=== PATIENT | male | born 1950 | race Caucasian/White ===

== ENCOUNTER 2019-01-23 05:03 | Observation (INO) ==
[2019-01-23 05:46] LABS: Bilirubin,Urine Negative (Negative); Blood,Urine Negative (Negative); Clarity,Urine Clear (Clear); Color,Urine Yellow (Yellow); Glucose,Urine (UA) Normal (Normal); Ketones,Urine Negative (Negative); Leukocyte Esterase,Urine Negative (Negative); Nitrite,Urine Negative (Negative); Protein,Urine Negative (Neg-Trace); Specific Gravity,Urine 1.025 (1.010-1.025); Urobilinogen,Urine Normal (Normal)
[2019-01-23] MEDS ORDERED: Isovue-370 500 ML BOTTLE IVP ONE (05:47)
[2019-01-23] MEDS ORDERED: 0.9 % Sodium Chloride 1,000 ML IVC ONE (05:49)
[2019-01-23] MEDS ORDERED: Ondansetron 4 MG/2 ML VIAL IVP ONE (05:49)
[2019-01-23] MEDS ORDERED: *HR* Morphine 2 MG/ML SYRINGE IVP ONE (05:49)
--- NOTE | 2019-01-23 05:53 | Emergency Department Note ---
Disposition Clinical Impression: Abdominal pain Qualifiers: Abdominal location: right lower quadrant Qualified Code(s): R10.31 - Right lower quadrant pain Disposition: Home, Self-Care Condition: Fair Referrals: NONE,PCP [Primary Care Provider] - Forms: ED Satisfaction Letter, Work/School Release Time of Disposition: 06:52 Abdominal Pain HPI - General Chief Complaint: ED Abdominal Pain Stated Complaint: "Pain right side of abd" Time Seen by Provider: 01/23/19 05:41 Source: patient, family Mode of arrival: private vehicle Limitations: no limitations Nursing Notes Reviewed: Yes Vital Signs Reviewed: Yes - History of Present Illness Pt Subjective Complaint: abdominal pain Onset (ago): month(s) Consistency: Worsening Location: RLQ Pain Severity: moderate Pain Scale: 8 Quality: stabbing, sharp Radiation: none Migration to: no migration Improves with: nothing Worsens with: nothing Context: other (intermittent sharp pain) Associated symptoms: Reports: nausea, fever. Denies: vomiting, diarrhea, chills, constipation, dysuria, hematemesis, hematochezia, melena, hematuria, anorexia, syncope Treatments prior to arrival: none (Saw PCP 3 weeks ago and was told to go to the ER if pain got worse.) - Related Data Home Medications Medication Instructions Recorded Confirmed Aspirin/Calcium Carbonate/Mag 325 mg PO DAILY 08/27/18 08/27/18 [Aspirin Buffered 325 mg Tab] Glimepiride [Amaryl] 1 mg PO DAILY 08/27/18 08/27/18 Metformin HCl [Metformin ER 1,000 mg PO QAM 08/27/18 08/27/18 Gastric] Tamsulosin [Flomax] 0.4 mg PO DAILY 08/27/18 08/27/18 Previous Rx's Medication Instructions Recorded Docusate [Colace] 100 mg PO DAILY PRN #30 capsule 08/30/18 Lisinopril [Zestril] 2.5 mg PO DAILY #30 tablet 08/30/18 Metoprolol XL (24 HR) Succ [Toprol 25 mg PO DAILY #30 tab.er.24h 08/30/18 Xl] Simvastatin [Zocor] 20 mg PO HS #30 tablet 08/30/18 Allergies Allergy/AdvReac Type Severity Reaction Status Date / Time No Known Allergies Allergy Verified 08/27/18 09:47 All systems ED: reviewed and negative except as stated. Review of Systems: As Per HPI Constitutional: Denies: fever, chills, weakness Cardiovascular: Denies: chest pain, palpitations, dyspnea on exertion Respiratory: Denies: dyspnea Gastrointestinal: Denies: abdominal pain, nausea, vomiting, diarrhea Genitourinary: Denies: urgency Musculoskeletal: Denies: back pain, neck pain Integumentary: Denies: rash Neurological: Denies: headache, weakness, numbness, paresthesias Hematological/Lymphatic: Denies: easy bleeding, easy bruising Abdominal Pain PMH - Past Medical History Medical history: Reports: coronary artery disease, diabetes, hypertension, kidney stones, myocardial infarction, TIA Male Surgical History: Reports: angioplasty/stent, coronary bypass (CABG) Psychiatric history: Reports: no psych history - Social History Smoking status: Never smoker Alcohol use: Reports: none Drug use: Reports: none Physical Exam - General Limitations: no limitations General appearance: alert, in no apparent distress - Head Head exam: atraumatic, normocephalic, normal inspection - Eye Eye exam: Present: normal appearance. Absent: scleral icterus, conjunctival injection - ENT ENT exam: mucous membranes moist - Neck Neck exam: Present: normal inspection, full ROM, trachea midline. Absent: meningismus - Chest Chest inspection: Present: normal inspection - Respiratory Respiratory exam: Present: normal lung sounds bilaterally. Absent: respiratory distress - Cardiovascular Cardiovascular exam: Present: regular rate, normal rhythm - Abdominal Exam Abdominal exam: Present: soft, tenderness. Absent: distention, guarding, rebound, rigidity, organomegaly, trauma, mass, pulsatile mass Abdominal tenderness: Present: RLQ, moderate - Extremities Exam Extremities exam: Present: normal inspection, normal capillary refill. Absent: pedal edema - Neurological Exam Neurological exam: Present: alert, oriented X3, CN II-XII intact, normal gait - Psychiatric Psychiatric exam: Present: normal affect, normal mood - Skin Skin exam: Present: warm, dry, intact, normal color Course Course Narrative: Patient presents from home with his brother for evaluation of right lower quadrant abdominal pain 1 month, getting worse. He has tenderness to palpation the right lower quadrant without guarding or other peritoneal signs. Labs, meds and CT ordered. Case discussed with oncoming nurse practitioner Dennis Sharma. She will take over care of this patient. Vital Signs Temperature 97.6 F 01/23/19 05:15 Pulse Rate 66 01/23/19 05:15 Respiratory Rate 16 01/23/19 05:15 Blood Pressure 171/97 01/23/19 05:15 O2 Sat by Pulse Oximetry 99 01/23/19 05:15 Temperature 97.6 F 01/23/19 05:15 Pulse Rate 72 01/23/19 06:41 Respiratory Rate 20 01/23/19 06:41 Blood Pressure 180/99 01/23/19 06:41 O2 Sat by Pulse Oximetry 99 01/23/19 06:41 Oxygen Delivery Oxygen Delivery Room Air Abdominal Pain - Lab Data Result diagrams: 01/23/19 05:28 01/23/19 05:28 Lab Results 01/23/19 01/23/19 01/23/19 Range/Units 05:28 05:28 05:28 WBC 6.4 (4.3-11.1) K/mcL RBC 5.37 (4.19-5.50) M/mcL Hgb 15.7 (12.9-16.9) g/dL Hct 47.5 (37.5-50.1) % MCV 88.5 (83.0-100.0) fL MCH 29.2 (28.0-33.3) pg MCHC 33.1 (31.6-35.5) g/dL RDW 12.8 (11.5-14.5) % Plt Count 166 (140-400) K/mcL MPV 10.9 (9.4-12.4) fL Immature Gran % 0.3 (0-4) % Seg Neutrophils % 62.7 % Lymphocytes % 25.5 % Monocytes % 7.6 % Eosinophils % 3.1 % Basophils % 0.8 % Neutrophils # 4.0 (1.6-8.9) K/mcL Lymphocytes # 1.6 (0.6-4.6) K/mcL Monocytes # 0.5 (0.0-1.3) K/mcL Eosinophils # 0.2 (0.0-0.6) K/mcL Basophils # 0.1 (0.0-0.2) K/mcL Sodium 138 (136-145) mEq/L Potassium 4.2 (3.5-5.1) mEq/L Chloride 105 (98-107) mEq/L Carbon Dioxide 26 (23-29) mEq/L BUN 16 (8-23) mg/dL Creatinine 0.76 (0.70-1.30) mg/dL Est GFR ( Amer) > 60 (> 60) Est GFR (Non-Af Amer) > 60 (> 60) BUN/Creatinine Ratio 21 (6-26) Glucose 166 H (70-105) mg/dL Calculated Osmolality 291 (280-300) Calcium 9.4 (8.6-10.3) mg/dL Total Bilirubin 0.6 (0.3-1.0) mg/dL Direct Bilirubin 0.1 (0.0-0.2) mg/dL Indirect Bilirubin 0.5 (0.0-1.2) mg/dL AST 16 (13-39) Units/L ALT 19 (7-52) Units/L Alkaline Phosphatase 81 (34-104) Units/L Serum Total Protein 6.8 (6.4-8.9) g/dL Albumin 4.1 (3.5-5.7) g/dL Globulin 2.7 (2.4-3.5) g/dL Albumin/Globulin Ratio 1.5 (1.1-2.2) Amylase 30 (29-103) Units/L Lipase 26 (11-82) Units/L Urine Color Yellow (Yellow) Urine Clarity Clear (Clear) Urine pH 6.0 (5.0-8.0) pH Units Ur Specific [place] 1.025 (1.010-1.025) Urine Protein Negative (Neg-Trace) mg/dL Urine Glucose (UA) Normal (Normal) mg/dL Urine Ketones Negative (Negative) mg/dL Urine Blood Negative (Negative) Urine Nitrite Negative (Negative) Urine Bilirubin Negative (Negative) Urine Urobilinogen Normal (Normal) mg/dL Ur Leukocyte Esterase Negative (Negative) Ur Culture Indicated? NO (NO)
[2019-01-23 05:54] LABS: Basophils # 0.1 K/mcL (0.0-0.2); Basophils % 0.8 %; Eosinophils # 0.2 K/mcL (0.0-0.6); Eosinophils % 3.1 %; Hematocrit 47.5 % (37.5-50.1); Hemoglobin 15.7 g/dL (12.9-16.9); Immature Granulocytes % 0.3 % (0-4); Lymphocytes # 1.6 K/mcL (0.6-4.6); Lymphocytes % 25.5 %; Mean Corpuscular HGB Conc 33.1 g/dL (31.6-35.5); Mean Corpuscular Hemoglobin 29.2 pg (28.0-33.3); Mean Corpuscular Volume 88.5 fL (83.0-100.0); Mean Platelet Volume 10.9 fL (9.4-12.4); Monocytes # 0.5 K/mcL (0.0-1.3); Monocytes % 7.6 %; Platelet Count 166 K/mcL (140-400); Red Blood Count 5.37 M/mcL (4.19-5.50); Red Cell Distribution Width 12.8 % (11.5-14.5); Segmented Neutrophils % 62.7 %
[2019-01-23 06:04] LABS: Alanine Aminotransferase 19 Units/L (7-52); Albumin 4.1 g/dL (3.5-5.7); Albumin/Globulin Ratio 1.5 (1.1-2.2); Alkaline Phosphatase 81 Units/L (34-104); Amylase 30 Units/L (29-103); Aspartate Amino Transferase 16 Units/L (13-39); BUN/Creatinine Ratio 21 (6-26); Bilirubin,Direct 0.1 mg/dL (0.0-0.2); Bilirubin,Indirect 0.5 mg/dL (0.0-1.2); Bilirubin,Total 0.6 mg/dL (0.3-1.0); Blood Urea Nitrogen 16 mg/dL (8-23); Calcium 9.4 mg/dL (8.6-10.3); Carbon Dioxide 26 mEq/L (23-29); Chloride 105 mEq/L (98-107); Globulin 2.7 g/dL (2.4-3.5); Glucose 166 mg/dL (70-105); Lipase 26 Units/L (11-82); Osmolality,Calculated 291 (280-300); Potassium 4.2 mEq/L (3.5-5.1); Sodium 138 mEq/L (136-145); Total Protein 6.8 g/dL (6.4-8.9); eGFR For Non-African Americans > 60 (> 60)
--- NOTE | 2019-01-23 07:07 | Emergency Department Note ---
Disposition Clinical Impression: Small bowel obstruction Abdominal pain Qualifiers: Abdominal location: unspecified location Qualified Code(s): R10.9 - Unspecified abdominal pain Disposition: Admitted As Inpatient Condition: Fair Referrals: NONE,PCP [Primary Care Provider] - Forms: ED Satisfaction Letter, Work/School Release Time of Disposition: 08:34 Abdominal Pain HPI - General Chief Complaint: ED Abdominal Pain Stated Complaint: "Pain right side of abd" Time Seen by Provider: 01/23/19 05:41 Source: patient, family Mode of arrival: private vehicle - History of Present Illness Pt Subjective Complaint: abdominal pain Location: RLQ Pain Severity: moderate Pain Scale: 3 Quality: stabbing, sharp Migration to: no migration Improves with: nothing Worsens with: nothing Context: other (intermittent sharp pain) Associated symptoms: Reports: nausea, fever. Denies: vomiting, diarrhea, chills, constipation, dysuria, hematemesis, hematochezia, melena, hematuria, anorexia, syncope - Related Data Home Medications Medication Instructions Recorded Confirmed Aspirin/Calcium Carbonate/Mag 325 mg PO DAILY 08/27/18 08/27/18 [Aspirin Buffered 325 mg Tab] Glimepiride [Amaryl] 1 mg PO DAILY 08/27/18 08/27/18 Metformin HCl [Metformin ER 1,000 mg PO QAM 08/27/18 08/27/18 Gastric] Tamsulosin [Flomax] 0.4 mg PO DAILY 08/27/18 08/27/18 Previous Rx's Medication Instructions Recorded Docusate [Colace] 100 mg PO DAILY PRN #30 capsule 08/30/18 Lisinopril [Zestril] 2.5 mg PO DAILY #30 tablet 08/30/18 Metoprolol XL (24 HR) Succ [Toprol 25 mg PO DAILY #30 tab.er.24h 08/30/18 Xl] Simvastatin [Zocor] 20 mg PO HS #30 tablet 08/30/18 Allergies Allergy/AdvReac Type Severity Reaction Status Date / Time No Known Allergies Allergy Verified 08/27/18 09:47 Constitutional: Denies: fever, chills, weakness Cardiovascular: Denies: chest pain, palpitations, dyspnea on exertion Respiratory: Denies: dyspnea Gastrointestinal: Denies: abdominal pain, nausea, vomiting, diarrhea Genitourinary: Denies: urgency Musculoskeletal: Denies: back pain, neck pain Integumentary: Denies: rash Neurological: Denies: headache, weakness, numbness, paresthesias Hematological/Lymphatic: Denies: easy bleeding, easy bruising Abdominal Pain PMH - Past Medical History Medical history: Reports: coronary artery disease, diabetes, hypertension, kidney stones, myocardial infarction, TIA Male Surgical History: Reports: angioplasty/stent, coronary bypass (CABG) Psychiatric history: Reports: no psych history - Social History Smoking status: Never smoker Alcohol use: Reports: none Drug use: Reports: none Physical Exam - General Limitations: no limitations General appearance: alert, in no apparent distress Course Vital Signs Temperature 97.6 F 01/23/19 05:15 Pulse Rate 66 01/23/19 05:15 Respiratory Rate 16 01/23/19 05:15 Blood Pressure 171/97 01/23/19 05:15 O2 Sat by Pulse Oximetry 99 01/23/19 05:15 Temperature 97.6 F 01/23/19 05:15 Pulse Rate 58 01/23/19 07:16 Respiratory Rate 18 01/23/19 07:16 Blood Pressure 169/92 01/23/19 07:16 O2 Sat by Pulse Oximetry 97 01/23/19 07:16 Oxygen Delivery Oxygen Delivery Room Air Abdominal Pain - MDM Narrative Medical decision making narrative: Sign out from hourly shift provider Adam PA: 68 year old male presents with RLQ abdominal pain for a month. Got worse and associate with nausea for a few days. Last bowel movement last night. History of Hernial repair in 1971. Labs unremarkable. Pending abd CT. 07:[address] indicated early/developing small bowel obstruction. Paged oncall surgeon. Dr. Shah will see the patient in ER 08:00 Dr. Shah saw the patient and suggested to admit pt to medical service. He will follow up pt in the floor. - Lab Data Lab results reviewed: Yes I reviewed the patient's lab results. Result diagrams: 01/23/19 05:28 01/23/19 05:28 Lab Results 01/23/19 01/23/19 01/23/19 Range/Units 05:28 05:28 05:28 WBC 6.4 (4.3-11.1) K/mcL RBC 5.37 (4.19-5.50) M/mcL Hgb 15.7 (12.9-16.9) g/dL Hct 47.5 (37.5-50.1) % MCV 88.5 (83.0-100.0) fL MCH 29.2 (28.0-33.3) pg MCHC 33.1 (31.6-35.5) g/dL RDW 12.8 (11.5-14.5) % Plt Count 166 (140-400) K/mcL MPV 10.9 (9.4-12.4) fL Immature Gran % 0.3 (0-4) % Seg Neutrophils % 62.7 % Lymphocytes % 25.5 % Monocytes % 7.6 % Eosinophils % 3.1 % Basophils % 0.8 % Neutrophils # 4.0 (1.6-8.9) K/mcL Lymphocytes # 1.6 (0.6-4.6) K/mcL Monocytes # 0.5 (0.0-1.3) K/mcL Eosinophils # 0.2 (0.0-0.6) K/mcL Basophils # 0.1 (0.0-0.2) K/mcL Sodium 138 (136-145) mEq/L Potassium 4.2 (3.5-5.1) mEq/L Chloride 105 (98-107) mEq/L Carbon Dioxide 26 (23-29) mEq/L BUN 16 (8-23) mg/dL Creatinine 0.76 (0.70-1.30) mg/dL Est GFR ( Amer) > 60 (> 60) Est GFR (Non-Af Amer) > 60 (> 60) BUN/Creatinine Ratio 21 (6-26) Glucose 166 H (70-105) mg/dL Calculated Osmolality 291 (280-300) Calcium 9.4 (8.6-10.3) mg/dL Total Bilirubin 0.6 (0.3-1.0) mg/dL Direct Bilirubin 0.1 (0.0-0.2) mg/dL Indirect Bilirubin 0.5 (0.0-1.2) mg/dL AST 16 (13-39) Units/L ALT 19 (7-52) Units/L Alkaline Phosphatase 81 (34-104) Units/L Serum Total Protein 6.8 (6.4-8.9) g/dL Albumin 4.1 (3.5-5.7) g/dL Globulin 2.7 (2.4-3.5) g/dL Albumin/Globulin Ratio 1.5 (1.1-2.2) Amylase 30 (29-103) Units/L Lipase 26 (11-82) Units/L Urine Color Yellow (Yellow) Urine Clarity Clear (Clear) Urine pH 6.0 (5.0-8.0) pH Units Ur Specific [place] 1.025 (1.010-1.025) Urine Protein Negative (Neg-Trace) mg/dL Urine Glucose (UA) Normal (Normal) mg/dL Urine Ketones Negative (Negative) mg/dL Urine Blood Negative (Negative) Urine Nitrite Negative (Negative) Urine Bilirubin Negative (Negative) Urine Urobilinogen Normal (Normal) mg/dL Ur Leukocyte Esterase Negative (Negative) Ur Culture Indicated? NO (NO) - Radiology Data Radiology results reviewed: Yes I reviewed the patient's radiology results. HISTORY: ORDERING SYSTEM PROVIDED HISTORY: RLQ pain, tenderness, nausea, fever 75 ml of isovue 370 FINDINGS: Lower Chest: The visualized heart and lungs show no acute abnormalities. Organs: Cholecystectomy with reservoir effect intra and extrahepatic biliary ductal dilatation. No focal liver lesion. The spleen, pancreas, adrenal glands show no significant abnormalities. Exophytic 1.3 cm right renal cyst seen posteriorly unchanged. No adrenal mass. GI/Bowel: There is limited evaluation due to absence of oral contrast. Stomach grossly normal. In the left mid abdomen there is a long mildly dilated fluid-filled small bowel loop of. On axial image 90 and 122, there are 2 transition points. This is also seen on coronal image 41 and 31. Findings are highly concerning for early developing closed-loop obstruction. Close observation and follow-up is advised. Terminal ileum unremarkable. Normal appendix. No acute process in the colon. Pelvis: Urinary bladder grossly normal. Enlarged prostate gland suggestive of BPH. No suspicious pelvic mass. Peritoneum/Retroperitoneum: No free intraperitoneal fluid or significant lymphadenopathy. No free intraperitoneal air. Bones/Soft Tissues: Diffuse degenerative changes. Posterior fusion of L5 and S1 vertebral bodies with L5 laminectomy. CT/CT abd pelvis w iv no oral IMPRESSION: 1. Mildly dilated left mid abdomen small bowel loops with 2 transition points noted the as detailed above highly concerning for early/developing closed-loop small bowel obstruction. Close observation an follow-up advised. 2. Exophytic right renal cyst. 3. Prostatomegaly suggestive of BPH. D/ / Rodriguez Hartman MD / Rodriguez Hartman MD Interpreting Provider: Rodriguez Hartman MD
--- NOTE | 2019-01-23 07:33 | Emergency Department Note ---
Disposition Clinical Impression: Small bowel obstruction Abdominal pain Qualifiers: Abdominal location: unspecified location Qualified Code(s): R10.9 - Unspecified abdominal pain Disposition: Admitted As Inpatient Condition: Fair Time of Disposition: 12:56 General Adult HPI - General Chief complaint: ED Abdominal Pain Stated complaint: "Pain right side of abd" Time Seen by Provider: 01/23/19 05:41 Source: patient, family Mode of arrival: private vehicle Limitations: no limitations - History of Present Illness Pain Scale: 3 - Related Data Home Medications Medication Instructions Recorded Confirmed Aspirin/Calcium Carbonate/Mag 325 mg PO DAILY 08/27/18 08/27/18 [Aspirin Buffered 325 mg Tab] Glimepiride [Amaryl] 1 mg PO DAILY 08/27/18 08/27/18 Metformin HCl [Metformin ER 1,000 mg PO QAM 08/27/18 08/27/18 Gastric] Tamsulosin [Flomax] 0.4 mg PO DAILY 08/27/18 08/27/18 Previous Rx's Medication Instructions Recorded Docusate [Colace] 100 mg PO DAILY PRN #30 capsule 08/30/18 Lisinopril [Zestril] 2.5 mg PO DAILY #30 tablet 08/30/18 Metoprolol XL (24 HR) Succ [Toprol 25 mg PO DAILY #30 tab.er.24h 08/30/18 Xl] Simvastatin [Zocor] 20 mg PO HS #30 tablet 08/30/18 Allergies Allergy/AdvReac Type Severity Reaction Status Date / Time No Known Allergies Allergy Verified 08/27/18 09:47 Constitutional: Denies: fever, chills, weakness Cardiovascular: Denies: chest pain, palpitations, dyspnea on exertion Respiratory: Denies: dyspnea Gastrointestinal: Denies: abdominal pain, nausea, vomiting, diarrhea Genitourinary: Denies: urgency Musculoskeletal: Denies: back pain, neck pain Integumentary: Denies: rash Neurological: Denies: headache, weakness, numbness, paresthesias Hematological/Lymphatic: Denies: easy bleeding, easy bruising Past Medical History - Past Medical History Medical history: Reports: coronary artery disease, diabetes, hypertension, kidney stones, myocardial infarction, TIA Surgical history: Reports: angioplasty/stent, cholecystectomy, coronary bypass (CABG) Psychiatric history: Reports: no psych history - Social History Smoking Status: Never smoker Smokeless Tobacco Status: No Alcohol use: Reports: none Drug use: Reports: none Physical Exam - General Limitations: no limitations General appearance: alert, in no apparent distress Course Vital Signs Temperature 97.6 F 01/23/19 05:15 Pulse Rate 66 01/23/19 05:15 Respiratory Rate 16 01/23/19 05:15 Blood Pressure 171/97 01/23/19 05:15 O2 Sat by Pulse Oximetry 99 01/23/19 05:15 Temperature 98.2 F 01/23/19 11:40 Pulse Rate 65 01/23/19 11:40 Respiratory Rate 18 01/23/19 11:40 Blood Pressure 210/98 01/23/19 11:40 O2 Sat by Pulse Oximetry 98 01/23/19 11:40 Oxygen Delivery Oxygen Delivery Room Air Medical Decision Making - Lab Data Result diagrams: 01/23/19 05:28 01/23/19 05:28 Lab Results 01/23/19 01/23/19 01/23/19 Range/Units 05:28 05:28 05:28 WBC 6.4 (4.3-11.1) K/mcL RBC 5.37 (4.19-5.50) M/mcL Hgb 15.7 (12.9-16.9) g/dL Hct 47.5 (37.5-50.1) % MCV 88.5 (83.0-100.0) fL MCH 29.2 (28.0-33.3) pg MCHC 33.1 (31.6-35.5) g/dL RDW 12.8 (11.5-14.5) % Plt Count 166 (140-400) K/mcL MPV 10.9 (9.4-12.4) fL Immature Gran % 0.3 (0-4) % Seg Neutrophils % 62.7 % Lymphocytes % 25.5 % Monocytes % 7.6 % Eosinophils % 3.1 % Basophils % 0.8 % Neutrophils # 4.0 (1.6-8.9) K/mcL Lymphocytes # 1.6 (0.6-4.6) K/mcL Monocytes # 0.5 (0.0-1.3) K/mcL Eosinophils # 0.2 (0.0-0.6) K/mcL Basophils # 0.1 (0.0-0.2) K/mcL Sodium 138 (136-145) mEq/L Potassium 4.2 (3.5-5.1) mEq/L Chloride 105 (98-107) mEq/L Carbon Dioxide 26 (23-29) mEq/L BUN 16 (8-23) mg/dL Creatinine 0.76 (0.70-1.30) mg/dL Est GFR ( Amer) > 60 (> 60) Est GFR (Non-Af Amer) > 60 (> 60) BUN/Creatinine Ratio 21 (6-26) Glucose 166 H (70-105) mg/dL Calculated Osmolality 291 (280-300) Calcium 9.4 (8.6-10.3) mg/dL Total Bilirubin 0.6 (0.3-1.0) mg/dL Direct Bilirubin 0.1 (0.0-0.2) mg/dL Indirect Bilirubin 0.5 (0.0-1.2) mg/dL AST 16 (13-39) Units/L ALT 19 (7-52) Units/L Alkaline Phosphatase 81 (34-104) Units/L Serum Total Protein 6.8 (6.4-8.9) g/dL Albumin 4.1 (3.5-5.7) g/dL Globulin 2.7 (2.4-3.5) g/dL Albumin/Globulin Ratio 1.5 (1.1-2.2) Amylase 30 (29-103) Units/L Lipase 26 (11-82) Units/L Urine Color Yellow (Yellow) Urine Clarity Clear (Clear) Urine pH 6.0 (5.0-8.0) pH Units Ur Specific [place] 1.025 (1.010-1.025) Urine Protein Negative (Neg-Trace) mg/dL Urine Glucose (UA) Normal (Normal) mg/dL Urine Ketones Negative (Negative) mg/dL Urine Blood Negative (Negative) Urine Nitrite Negative (Negative) Urine Bilirubin Negative (Negative) Urine Urobilinogen Normal (Normal) mg/dL Ur Leukocyte Esterase Negative (Negative) Ur Culture Indicated? NO (NO) Attestation Statement - Attestation Attestation: For this encounter, I have reviewed the [employer] WORK[employer] SUPERVISOR or PA documentation, treatment plan, and medical decision making; and I have had face to face time with this patient. I evaluated this patient in conjunction with the nurse practitioner upon completion of the CT scan. The patient presents with intermittent abdominal pain. His pain persist but is much improved at the time of my exam. CT shows suspected early small bowel obstruction. I will request admission after discussion with the on-call surgical service
--- NOTE | 2019-01-23 09:44 | AcuteCare Surgery Consult Note ---
Date of Encounter: 01/23/19 Time of Encounter: 09:41 Assessment and Plan (1) Abdominal pain Current Visit: Yes Status: Acute 68M with radiological concern for obstruction, clinically having bowel function; admit for evaluation IVF NPO strongly advise SBFT to be performed today - if obstructed, then will monitor as patient is not vomiting and abdomen is soft/non distended - closed loop obstruction will go to the OR today replace electrolytes PRN chemical dvt prophylaxis will continue to follow Qualifiers: Abdominal location: unspecified location Qualified Code(s): R10.9 - Unspecified abdominal pain History of Present Illness Consult date: 01/23/19 Reason for consult: abdominal pain History of present illness: 68M PMH significant for obesity, DM, TIA, CAD/[place], prior cholecystectomy and inguinal hernia repair who presents with 1 month history of ongoing abdominal pain. the pain is localized to the right side the abdomen, non radiating, that has gotten progressively worse over the last 4 weeks. he has been to the urgent care center several times. he was always told to go to the ER but decided otherwise each time. the pain was associated with nausea and vomiting about 4 weeks ago, but, at present he does not report any vomiting. he is able to tolerate a diet and had a bowel movement one day prior to evaluation and had flatus about 1hr prior to my evaluation; A CT scan without contrast was obtained and found to be concerning for possible obstruction, maybe closed loop obstruction; general surgery was consulted for further evaluation; Past Med Surg Social Fam HX - Past Medical History Medical history: coronary artery disease, diabetes, hypertension, kidney stones, myocardial infarction, TIA Psychiatric history: no psych history - Past Surgical History Surgical History: angioplasty/stent, cholecystectomy, coronary bypass (CABG) Additional surgical history: back surgery x4,. right ankle sx - Social History Smoking Status: Never smoker Smokeless Tobacco Status: No Alcohol use: none Drug use: none - Family History Brother Hx Family Endocrine Disorder: Yes Medications and Allergies Aspirin/Calcium Carbonate/Mag [Aspirin Buffered 325 mg Tab] 325 mg PO DAILY 08/27/18 [History] Glimepiride [Amaryl] 1 mg PO DAILY 08/27/18 [History] Metformin HCl [Metformin ER Gastric] 1,000 mg PO QAM 08/27/18 [History] Tamsulosin [Flomax] 0.4 mg PO DAILY 08/27/18 [History] Docusate [Colace] 100 mg PO DAILY PRN #30 capsule 08/30/18 [Rx] Lisinopril [Zestril] 2.5 mg PO DAILY #30 tablet 08/30/18 [Rx] Metoprolol XL (24 HR) Succ [Toprol Xl] 25 mg PO DAILY #30 tab.er.24h 08/30/18 [Rx] Simvastatin [Zocor] 20 mg PO HS #30 tablet 08/30/18 [Rx] Allergy/AdvReac Type Severity Reaction Status Date / Time No Known Allergies Allergy Verified 08/27/18 09:47 Review of Systems All systems PM: 12 point ROS negative besides HPI findings General Surgery Exam Initial Vital Signs Temp Pulse Resp BP Pulse Ox 97.6 F 66 16 171/97 99 01/23/19 05:15 01/23/19 05:15 01/23/19 05:15 01/23/19 05:15 01/23/19 05:15 - General physical appearance no distress - Eyes PERRL, normal ocular movement - Respiratory normal expansion, normal respiratory effort - Cardiovascular Cardiovascular exam: Present: RRR - Abdomen Abdomen general surgery: Present: soft, tender (mildly tender on right side; non peritoneal) - Integumentary Integumentary general surgery: Present: warm and dry - Neurologic Present: CN 2-12 grossly intact - Musculoskeletal Present: normal posture - Psychiatric Psychiatric general surgery: Present: A&Ox3 Exam Initial Vital Signs Temp Pulse Resp BP Pulse Ox 97.6 F 66 16 171/97 99 01/23/19 05:15 01/23/19 05:15 01/23/19 05:15 01/23/19 05:15 01/23/19 05:15 Results - Labs 01/23/19 05:28 01/23/19 05:28 Abnormal lab results Glucose 166 mg/dL (70-105) H 01/23/19 05:28 Diabetes panel 01/23/19 Range/Units 05:28 Sodium 138 (136-145) mEq/L Potassium 4.2 (3.5-5.1) mEq/L Chloride 105 (98-107) mEq/L Carbon Dioxide 26 (23-29) mEq/L BUN 16 (8-23) mg/dL Creatinine 0.76 (0.70-1.30) mg/dL Glucose 166 H (70-105) mg/dL Calcium 9.4 (8.6-10.3) mg/dL AST 16 (13-39) Units/L ALT 19 (7-52) Units/L Alkaline Phosphatase 81 (34-104) Units/L Albumin 4.1 (3.5-5.7) g/dL Calcium panel 01/23/19 Range/Units 05:28 Calcium 9.4 (8.6-10.3) mg/dL Albumin 4.1 (3.5-5.7) g/dL Pituitary panel 01/23/19 Range/Units 05:28 Sodium 138 (136-145) mEq/L Potassium 4.2 (3.5-5.1) mEq/L Chloride 105 (98-107) mEq/L Carbon Dioxide 26 (23-29) mEq/L BUN 16 (8-23) mg/dL Creatinine 0.76 (0.70-1.30) mg/dL Glucose 166 H (70-105) mg/dL Calcium 9.4 (8.6-10.3) mg/dL Adrenal panel 01/23/19 Range/Units 05:28 Sodium 138 (136-145) mEq/L Potassium 4.2 (3.5-5.1) mEq/L Chloride 105 (98-107) mEq/L Carbon Dioxide 26 (23-29) mEq/L BUN 16 (8-23) mg/dL Creatinine 0.76 (0.70-1.30) mg/dL Glucose 166 H (70-105) mg/dL Calcium 9.4 (8.6-10.3) mg/dL Total Bilirubin 0.6 (0.3-1.0) mg/dL AST 16 (13-39) Units/L ALT 19 (7-52) Units/L Alkaline Phosphatase 81 (34-104) Units/L Albumin 4.1 (3.5-5.7) g/dL All other labs normal. - Imaging CT scan - abdomen: report reviewed, image reviewed CT scan - pelvis: report reviewed, image reviewed Consult Discharge Plan - Plan Referrals: NONE,PCP [Primary Care Provider] -
--- NOTE | 2019-01-23 12:17 | Internal Med History&Physical ---
Date of Encounter: 01/23/19 Time of Encounter: 12:16 Internal Medicine - H&P: HPI Chief complaint: abdominal pain History of present illness: 68 year old male presents with RLQ abdominal pain for a month. Got worse and associate with nausea for a few days. Last bowel movement last night. History of Hernial repair in 1971. Labs unremarkable. abd ct indicated early/developing small bowel obstruction. surgery team was consulted by the ER and they suggested that there is no further management from their end, and advised to continue medical management. Past Med Surg Social Fam HX - Past Medical History Medical history: coronary artery disease, diabetes, hypertension, kidney stones, myocardial infarction, TIA Psychiatric history: no psych history - Past Surgical History Surgical History: cholecystectomy, coronary bypass (CABG) Additional surgical history: back surgery x4,. right ankle sx - Social History Smoking Status: Never smoker Smokeless Tobacco Status: No Alcohol use: none Drug use: none - Family History Brother Hx Family Endocrine Disorder: Yes Internal Medicine - H&P: Meds Aspirin/Calcium Carbonate/Mag [Aspirin Buffered 325 mg Tab] 325 mg PO DAILY 08/27/18 [History] Glimepiride [Amaryl] 1 mg PO DAILY 08/27/18 [History] Metformin HCl [Metformin ER Gastric] 1,000 mg PO QAM 08/27/18 [History] Tamsulosin [Flomax] 0.4 mg PO DAILY 08/27/18 [History] Docusate [Colace] 100 mg PO DAILY PRN #30 capsule 08/30/18 [Rx] Lisinopril [Zestril] 2.5 mg PO DAILY #30 tablet 08/30/18 [Rx] Metoprolol XL (24 HR) Succ [Toprol Xl] 25 mg PO DAILY #30 tab.er.24h 08/30/18 [Rx] Simvastatin [Zocor] 20 mg PO HS #30 tablet 08/30/18 [Rx] Allergy/AdvReac Type Severity Reaction Status Date / Time No Known Allergies Allergy Verified 08/27/18 09:47 All Systems PM: A 10-system review of systems was performed and is negative for pertinent fi ndings except as documented above in the HPI. - Constitutional Vitals: Temp Pulse Resp BP Pulse Ox 98.2 F 65 18 210/98 98 01/23/19 11:40 01/23/19 11:40 01/23/19 11:40 01/23/19 11:40 01/23/19 11:40 General appearance: Present: A&O X 3 Exam: As below - Head Head exam: Present: atraumatic, normocephalic - Neck Neck exam general surgery: Present: supple, trachea midline. Absent: lymphadenopathy - Respiratory Respiratory exam: Present: CTAB. Absent: accessory muscle use, rales, rhonchi, wheezes - Cardiovascular Cardiovascular exam: Present: RRR, +S1, +S2. Absent: diastolic murmur, gallop, rubs, systolic murmur - GI/Abdominal GI/Abdominal exam: Present: normal bowel sounds, soft, tenderness, no peritoneal signs. Absent: distended - Extremities Exam Extremities exam: Present: warm, radial pulses palpable and symmetrical. Absent: calf tenderness, cyanotic, pedal edema Internal Med - H&P Results - Labs CBC & Chem 7: 01/23/19 05:28 01/23/19 05:28 Labs: Short CBC 01/23/19 Range/Units 05:28 WBC 6.4 (4.3-11.1) K/mcL Hgb 15.7 (12.9-16.9) g/dL Hct 47.5 (37.5-50.1) % Plt Count 166 (140-400) K/mcL Neutrophils # 4.0 (1.6-8.9) K/mcL BMP 01/23/19 05:28 Sodium 138 Potassium 4.2 Chloride 105 Carbon Dioxide 26 BUN 16 Creatinine 0.76 Glucose 166 H Calcium 9.4 Liver Function 01/23/19 Range/Units 05:28 Total Bilirubin 0.6 (0.3-1.0) mg/dL Direct Bilirubin 0.1 (0.0-0.2) mg/dL AST 16 (13-39) Units/L ALT 19 (7-52) Units/L Alkaline Phosphatase 81 (34-104) Units/L Albumin 4.1 (3.5-5.7) g/dL Urine 01/23/19 Range/Units 05:28 Urine Color Yellow (Yellow) Urine Clarity Clear (Clear) Urine pH 6.0 (5.0-8.0) pH Units Ur Specific [place] 1.025 (1.010-1.025) Urine Protein Negative (Neg-Trace) mg/dL Urine Glucose (UA) Normal (Normal) mg/dL - Impressions ITS Impressions Abdomen/Pelvis CT 01/23/19 05:47 IMPRESSION: 1. Mildly dilated left mid abdomen small bowel loops with 2 transition points noted the as detailed above highly concerning for early/developing closed-loop small bowel obstruction. Close observation an follow-up advised. 2. Exophytic right renal cyst. 3. Prostatomegaly suggestive of BPH. D/ / Rodriguez Hartman MD / Rodriguez Hartman MD Interpreting Provider: Rodriguez Hartman MD - Assessment and Plan (1) Small bowel obstruction Current Visit: Yes Status: Acute Assessment and plan: History of Hernial repair in 1971. Labs un[address]. CT scan of the abdomen indicated early/developing small bowel obstruction. surgery team was consulted by the ER and they suggested that there is no further management from their end, and advised to continue medical management. We will keep the patient NPO and advance diet as tolerated. We will start PPIs and IV fluid hydration with isotonic fluid. (2) CAD (coronary artery disease) Current Visit: No Status: Chronic Qualifiers: Coronary Disease-Associated Artery/Lesion type: [place] artery [place] vs. transplanted heart: [place] heart Associated angina: without angina Qualified Code(s): I25.10 - Atherosclerotic heart disease of [place] coronary artery without angina pectoris (3) Type 2 diabetes mellitus Current Visit: No Status: Acute Assessment and plan: we will start insulin sliding scale with coverage Qualifiers: Diabetes mellitus nursing home insulin use: without middle or intermediate school principal use Diabetes mellitus complication status: without complication Qualified Code(s): E11.9 - Type 2 diabetes mellitus without complications (4) HTN (hypertension) Current Visit: No Status: Chronic Assessment and plan: we'll start the patient on when necessary IV antihypertension for systolic blood pressure about 180 and blood pressure 100 Qualifiers: Hypertension type: essential hypertension Qualified Code(s): I10 - Essential (primary) hypertension (5) Carpal tunnel syndrome, bilateral Current Visit: No Status: Acute (6) Hyperlipidemia Current Visit: Yes Status: Acute Assessment and plan: We will obtain FLP and cont statin when po diet resumed. Qualifiers: Qualified Code(s): E78.5 - Hyperlipidemia, unspecified (7) DVT prophylaxis Current Visit: Yes Status: Acute - Summary of Assessment and Plan Summary of Assessment and Plan: We will place SCDs - Time Spent With Patient Total time spent is greater than 50% in coordination of care (as documented) at patient's floor/unit and/or counseling patient:
[2019-01-23] MEDS ORDERED: OXYCODONE Oral CONC 10 MG/0.5 ML ORAL.SYG SL PRN ×2 (12:55)
[2019-01-23] MEDS ORDERED: Ondansetron 4 MG/2 ML VIAL IVP PRN (12:55)
[2019-01-23] MEDS ORDERED: Naloxone 0.4 MG/ML INJ IVP PRN (12:55)
[2019-01-23] MEDS ORDERED: DIATRIZOATE MEGLUMINE, SODIUM 120 ML SOLUTION PO ONE (13:52)
[2019-01-23] MEDS: 0.9 % Sodium Chloride 1,000 ML IVC SCH ×2 (14:01→22:01)
--- NOTE | 2019-01-23 14:28 | Event Note ---
Date of Encounter: 01/23/19 Time of Encounter: 14:27 Small bowel follow-through is without evidence of obstruction. Okay to start clear liquid diet per primary team. Surgery will continue to follow along.
[2019-01-23] MEDS ORDERED: *HR* Dextrose 50 % in Water (Syg) 50 ML SYRINGE IVP PRN (19:31)
[2019-01-23] MEDS ORDERED: Dextrose Gel 15 GM/37.5 ML TUBE PO PRN ×2 (19:31)
[2019-01-23] MEDS ORDERED: D5% in Water 1,000 ML IVC PRN (19:31)
[2019-01-23 20:48] LABS: Estimated Average Glucose 174 mg/dl; Hemoglobin A1C 7.7 %
[2019-01-24] MEDS: Insulin LISPRO 300 UNITS/3 ML VIAL SQ SCH ×3 (00:06→12:30)
[2019-01-24] MEDS ORDERED: *HR* Heparin 5,000 UNIT/ML VIAL SQ SCH (06:00)
[2019-01-24 09:06] LABS: Basophils % 0.7 %; Eosinophils # 0.1 K/mcL (0.0-0.6); Eosinophils % 2.3 %; Hematocrit 49.6 % (37.5-50.1); Hemoglobin 16.1 g/dL (12.9-16.9); Immature Granulocytes % 0.2 % (0-4); Lymphocytes # 1.3 K/mcL (0.6-4.6); Lymphocytes % 22.5 %; Mean Corpuscular HGB Conc 32.5 g/dL (31.6-35.5); Mean Corpuscular Hemoglobin 29.1 pg (28.0-33.3); Mean Corpuscular Volume 89.5 fL (83.0-100.0); Mean Platelet Volume 10.8 fL (9.4-12.4); Monocytes # 0.4 K/mcL (0.0-1.3); Monocytes % 7.4 %; Neutrophils # 3.8 K/mcL (1.6-8.9); Platelet Count 140 K/mcL (140-400); Red Blood Count 5.54 M/mcL (4.19-5.50); Red Cell Distribution Width 13.3 % (11.5-14.5); Segmented Neutrophils % 66.9 %
[2019-01-24 09:23] LABS: Alanine Aminotransferase 149 Units/L (7-52); Albumin 3.8 g/dL (3.5-5.7); Albumin/Globulin Ratio 1.5 (1.1-2.2); Alkaline Phosphatase 119 Units/L (34-104); Aspartate Amino Transferase 106 Units/L (13-39); BUN/Creatinine Ratio 16 (6-26); Bilirubin,Total 2.1 mg/dL (0.3-1.0); Blood Urea Nitrogen 12 mg/dL (8-23); Calcium 8.9 mg/dL (8.6-10.3); Carbon Dioxide 28 mEq/L (23-29); Chloride 104 mEq/L (98-107); Chol/HDL Ratio 3.5 (0-4.9); Cholesterol 140 mg/dL (< 200); Globulin 2.6 g/dL (2.4-3.5); Glucose 125 mg/dL (70-105); HDL Cholesterol 40 mg/dL (40-59); LDL Cholesterol,Calculated 79 mg/dL (0-99); Osmolality,Calculated 287 (280-300); Phosphorous 3.1 mg/dL (2.7-4.5); Sodium 138 mEq/L (136-145); Total Protein 6.4 g/dL (6.4-8.9); Triglycerides 103 mg/dL (< 150); eGFR For Non-African Americans > 60 (> 60)
[2019-01-24 09:28] LABS: Prothrombin Time 11.4 Seconds (9.4-12.1)
[2019-01-24 09:30] LABS: Activated Partial Thrombo Time 31.3 Seconds (26.0-36.0)
[2019-01-24 10:39] VITALS: BP 139/96
--- NOTE | 2019-01-24 12:02 | Discharge Summary ---
- NOTES TO OUTPATIENT PROVIDER Notes to Outpatient Provider: Patient with history of coronary artery disease, diabetes and hypertension was hospitalized here with possible early small bowel obstruction. He was kept nothing by mouth initially and surgery consulted. They recommended doing a small bowel follow-through study. This was completed yesterday and patient was not found to have any obstruction. His since then having bowel movements and is tolerating oral diet. He is clinically stable to be discharged per surgical standpoint. He will follow up with surgery as outpatient for reevaluation as patient continues to have intermittent right lower quadrant pain which could be hernia related. Date of Encounter: 01/24/19 Time of Encounter: 12:01 - Discharge Diagnosis (1) Small bowel obstruction Priority: Primary Status: Resolved (2) CAD (coronary artery disease) Priority: Secondary Status: Chronic Qualifiers: Coronary Disease-Associated Artery/Lesion type: [place] artery [place] vs. 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 Vera is a 68 year old male Patient with history of coronary artery disease, diabetes and hypertension was hospitalized here with possible early small bowel obstruction. He was kept nothing by mouth initially and surgery consulted. They recommended doing a small bowel follow-through study. This was completed yesterday and patient was not found to have any obstruction. His since then having bowel movements and is tolerating oral diet. He is clinically stable to be discharged per surgical standpoint. He will follow up with surgery as outpatient for reevaluation as patient continues to have intermittent right lower quadrant pain which could be hernia related. Discharge discussed with: patient, [facility] portal consultant - Time Spent with Patient Total time spent providing and/or coordinating discharge services: Time spent: Less than 30 minutes (20 min) - Discharge Medications Prescriptions: New Albuterol Sulfate [Albuterol Inhaler] 1 - 2 puff IH Q4HR PRN #1 hfa.aer.ad PRN Reason: Wheezing Continued Tamsulosin [Flomax] 0.4 mg PO DAILY Metformin HCl [Metformin ER Gastric] 1,000 mg PO QAM Glimepiride [Amaryl] 1 mg PO DAILY Aspirin/Calcium Carbonate/Mag [Aspirin Buffered 325 mg Tab] 325 mg PO DAILY Docusate [Colace] 100 mg PO DAILY PRN #30 capsule PRN Reason: Constipation Lisinopril [Zestril] 2.5 mg PO DAILY #30 tablet Metoprolol XL (24 HR) Succ [Toprol Xl] 25 mg PO DAILY #30 tab.er.24h Simvastatin [Zocor] 20 mg PO HS #30 tablet Home Medications: Aspirin/Calcium Carbonate/Mag [Aspirin Buffered 325 mg Tab] 325 mg PO DAILY 08/27/18 [History] Glimepiride [Amaryl] 1 mg PO DAILY 08/27/18 [History] Metformin HCl [Metformin ER Gastric] 1,000 mg PO QAM 08/27/18 [History] Tamsulosin [Flomax] 0.4 mg PO DAILY 08/27/18 [History] Docusate [Colace] 100 mg PO DAILY PRN #30 capsule 08/30/18 [Rx] Lisinopril [Zestril] 2.5 mg PO DAILY #30 tablet 08/30/18 [Rx] Metoprolol XL (24 HR) Succ [Toprol Xl] 25 mg PO DAILY #30 tab.er.24h 08/30/18 [Rx] Simvastatin [Zocor] 20 mg PO HS #30 tablet 08/30/18 [Rx] Albuterol Sulfate [Albuterol Inhaler] 1 - 2 puff IH Q4HR PRN #1 hfa.aer.ad 01/24/19 [Rx] Allergies/Adverse Reactions: Allergy/AdvReac Type Severity Reaction Status Date / Time No Known Allergies Allergy Verified 08/27/18 09:47 Date of admission: 01/23/19 10:53 Primary care physician: PCP NONE Consults: 01/23/19 07:34 Consult to Surgery [CONS] Stat Consulting Provider: [facility] Reason for Consult: developing small bowel obstruction Call Completed: Yes Discharging clinician: Gianfranco Lisa Anticipated date of discharge: 01/24/19 - Constitutional Vitals: Temp Pulse Resp BP Pulse Ox 98.2 F 74 16 139/96 97 01/24/19 10:35 01/24/19 10:35 01/24/19 10:35 01/24/19 10:35 01/24/19 10:35 General appearance: Present: A&O X 3 Exam: General: Patient is alert, no acute distress, oriented x 3 Respiratory: Good respiratory effort. Normal breath sounds. No wheezing or crackles. Cardiovascular: Regular rate and rhythm. s1 and s2 normal No clicks, rubs, gallops, or murmurs. No pedal edema Abdomen: Abdomen is soft, mild right lower quadrant abdominal wall tenderness. Bowel sounds are present Musculoskeletal: Spontaneously moving all extremities Skin: warm, dry, intact. Neuro: Alert oriented x 3 normal cranial nerves, no focal deficits - Patient Status Disposition: Home, Self-Care Condition: Good Functional capacity at discharge: independent ambulation Overall status at discharge: patient is progressing back to baseline - Discharge Instructions Follow Up With: Jose Lee DO [Partnered Physician] - (1 week) Faraz Castillo DO [Partnered Physician] - (In 1 week for follow-up and possible right inguinal hernia) - Diet and Activity Activity: increase activity as tolerated Diet: advance to your usual diet, diabetic diet, low fat, low cholesterol, low salt diet
[2019-01-24] MEDS ORDERED: Pantoprazole 40 MG VIAL IVP SCH (18:00)
== END 2019-01-24 17:10 | disposition home or self-care (01) ==
LOC: EMEROOARM 05:03 → 3ANU 05:03 → SUATTDRO 10:53 → 3ANU 11:36
PROVIDERS: ADMIT Internal Medicine Nephrology; ATTEND Internal Medicine